=== PATIENT | female | born 1970 | race Caucasian/White ===

== ENCOUNTER 2021-05-13 21:15 | Emergency (ER) | payer OTHER ==
[~2021-05-13] VITALS: Ht 162.6 cm; Wt 95.4 kg
--- NOTE | 2021-05-14 00:58 | PHYS DOC ---
General Adult EDM: Chief Complaint: INSECT BITE HPI: HPI: 50-year-old female presents to the emergency department complaining of an insect bite to her right lateral breast, states that the area is slightly sore, she has not noticed any surrounding erythema, fluid collection. Reports that the area has progressed over the last several days. She has not tried anything at home for it. The patient denies fever, chills, chest pain, shortness of breath, cough, recent trauma, or any other complaints. Review of Systems: Review of Systems: ROS is otherwise negative except for what was mentioned in the HPI Heart Score: C/O Chest Pain: No Allergies: Allergies: Allergies Coded Allergies Type Severity Reaction Last Updated Verified prochlorperazine Allergy Severe 05/14/21 Yes metronidazole Allergy Intermediate Itching 05/14/21 Yes Physical Exam: PE: Constitutional: No acute distress, non-toxic appearance. Neck: Normal range of motion, supple, no stridor. Cardiovascular: Heart rate regular rhythm. 2+ radial pulses Lungs & Thorax: No respiratory distress, symmetrical expansion. Chest wall: Right breast has a area that appears to be a pimple, no surrounding erythema, crepitus, no palpable fluid collection, no sign of infection. Skin: Warm, dry. Extremities: No tenderness, no cyanosis, ROM intact, no edema. Neurologic: Alert and oriented X 3, normal motor function, normal sensory function, no focal deficits noted. Non ataxic gait. GCS 15. Psychologic: Affect normal, judgment normal, mood normal. Course & Med Decision Making: Course & Med Decision Making Patient with acne/pimple versus simple bug bite to the right lateral breast area, no inflammatory changes or infectious changes were seen. Antibiotics would not be useful at this time in this case and patient was counseled on risk versus benefit of antibiotics which at this time I do not believe would be beneficial. Patient has no evidence of acute end organ damage from hypertension. I counseled the patient on their high blood pressure and the need to follow-up in the clinic to get this addressed. Departure Departure Impression: Primary Impression: Hypertension Additional Impression: Skin pimple Disposition: 01 HOME / SELF CARE / HOMELESS Condition: STABLE Referrals: NO PCP (PCP) Patient Instructions: Hypertension, [id number] Additional Instructions: You were seen in the emergency department for hypertension, or high blood pressure. You need to follow up with the medicine clinic or your primary care doctor for further evaluation and treatment of your blood pressure. You should return to the ED if you develop chest pain, shortness of breath, severe headache, or any other new or concerning symptoms. We started you on a low dose of blood pressure medication, but you may need more than one medication and should have a primary doctor that can further investigate your blood pressure issues. Losing some weight and improving your diet will be helpful in reducing your blood pressure as well. You were seen in the emergency department and your health condition was deemed not to require admission to the hospital. It is important to realize that we can only evaluate you during the time that you are in her department. Occasionally health conditions can worsen upon leaving the emergency department. If this were to happen, please return to and allow us the opportunity to reevaluate you. It is a pleasure to take care of your health needs. Return to the ER if your symptoms worsen, do not improve, or if you develop additional symptoms that are concerning to you TAM LAGUNA DO May 14, 2021 00:58
== END 2021-05-14 01:21 | disposition home or self-care (01) ==
LOC: ER 21:15
DX: I10 Essential (primary) hypertension (principal); R23.8 Other skin changes; Z88.8 Allergy status to other drugs, medicaments and biological substances
CPT/HCPCS: 99281